=== PATIENT | male | born 1950 ===

== ENCOUNTER 2016-07-24 23:22 | Emergency (ER) | payer SELFPAY ==
[2016-07-24 23:30] VITALS: BP 124/72
[2016-07-24] MEDS ORDERED: ASPIRIN 81 MG TABLET, CHEWABLE PO ONE (23:33)
--- NOTE | 2016-07-24 23:37 | ER Document Report ---
ED Medical Screen (RME) - General Stated Complaint: CHEST PAIN/LEFT SIDE NUMBNESS Notes: 66-year-old male chief complaint of heaviness in his chest that started at 9 PM tonight while sitting, reports pain radiating down left side (chest and abdomen) , feels fullness in his legs. Patient denies specifically having shortness of breath. Past medical history of congestive heart failure, type II diabetes. Patient denies current chest pain, denies history of DE - Related Data Allergies/Adverse Reactions: No Known Allergies Allergy (Unverified 07/24/16 23:31) Physical Exam - Vital signs Vitals: Temp Pulse Resp BP 97.9 F 69 22 H 124/72 07/24/16 23:28 07/24/16 23:28 07/24/16 23:28 07/24/16 23:28 - Respiratory Respiratory status: No respiratory distress Breath sounds: Normal. No: Decreased air movement, Nonproductive cough, Productive cough, Rales, Wheezing Course - Re-evaluation Re-evalutation: Patient speaking in full sentences easily, no tachypnea or labored breathing at triage, clear lung auscultation, rechecked oxygen saturation was found to be 96 % on evaluation. - Vital Signs Vital signs: Temp Pulse Resp BP Pulse Ox 97.9 F 69 22 H 124/72 07/24/16 23:28 07/24/16 23:28 07/24/16 23:28 07/24/16 23:28
[2016-07-25 00:29] LABS: ABSOLUTE EOSINOPHILS # (AUTO) 0.3 10^3/uL (0.0-0.6); ABSOLUTE LYMPHOCYTES (AUTO) 1.9 10^3/uL (0.5-4.7); ABSOLUTE MONOCYTES (AUTO) 0.8 10^3/uL (0.1-1.4); BASOPHILS % (AUTO) 0.7 % (0-2); EOSINOPHILS % (AUTO) 3.6 % (0-6); HEMATOCRIT 39.2 % (37.9-51.0); HEMOGLOBIN 13.6 g/dL (13.5-17.0); HGB HCT DIFFERENCE 1.6; LYMPHOCYTES % (AUTO) 26.8 % (13-45); MEAN CORPUSCULAR HEMOGLOBIN 29.6 pg (27.0-33.4); MEAN CORPUSCULAR HGB CONC 34.7 g/dL (32.0-36.0); MEAN CORPUSCULAR VOLUME 85 fl (80-97); MONOCYTES % (AUTO) 11.9 % (3-13); RED CELL DISTRIBUTION WIDTH 13.4 % (11.5-14.0)
[2016-07-25 00:37] LABS: ALANINE AMINOTRANSFERASE 36 U/L (21-72); ALBUMIN 4.1 g/dL (3.5-5.0); ALKALINE PHOSPHATASE 210 U/L (38-126); ANION GAP 12 (5-19); ASPARTATE AMINO TRANSFERASE 33 U/L (17-59); BILIRUBIN,TOTAL 0.4 mg/dL (0.2-1.3); BLOOD UREA NITROGEN 22 mg/dL (7-20); CALCIUM 9.3 mg/dL (8.4-10.2); CARBON DIOXIDE 30 mmol/L (22-30); CHLORIDE 95 mmol/L (98-107); CREATINE KINASE 99 U/L (55-170); CREATININE RESULT 0.83 mg/dL (0.52-1.25); GLUCOSE 178 mg/dL (75-110); POTASSIUM 4.1 mmol/L (3.6-5.0)
[2016-07-25 00:51] LABS: TROPONIN I < 0.012 ng/mL
--- NOTE | 2016-07-25 11:34 | EKG REPORT ---
SEVERITY:- ABNORMAL ECG - SINUS RHYTHM FIRST DEGREE AV BLOCK NONSPECIFIC INTRAVENTRICULAR CONDUCTION DELAY BORDERLINE INFERIOR Q WAVES : Confirmed by: Bassem Sharma 25-Jul-2016 11:33:46
== END 2016-07-25 02:30 | disposition left against medical advice (07) ==
LOC: ER 23:22
DX: R07.9 Chest pain, unspecified (principal); R20.0 Anesthesia of skin; I50.9 Heart failure, unspecified; E11.9 Type 2 diabetes mellitus without complications
CPT/HCPCS: 36415; 71010; 80053; 82550; 82553; 83880; 84484; 85025; 93005; 93010; 99281